=== PATIENT | male | born 1950 | race Two or more races ===

== ENCOUNTER → 2018-12-19 | Outpatient (CLI) | payer OTHER | LOC: EMCIMAGING 17:11 | PROVIDERS: ATTEND Family Medicine | DX: M50.121 Cervical disc disorder at C4-C5 level with radiculopathy (principal); M47.22 Other spondylosis with radiculopathy, cervical region; R09.02 Hypoxemia; H26.9 Unspecified cataract | CPT/HCPCS: 72040-PN ==